=== PATIENT | male | born 1995 | race Caucasian/White ===

== ENCOUNTER 2022-02-24 16:20 | Emergency (ER) | payer BC ==
[~2022-02-24] VITALS: Ht 200.7 cm; Wt 86.3 kg
[2022-02-24 16:26] VITALS: BP 148/74
--- NOTE | 2022-02-24 16:38 | PHYS DOC ---
Past Medical History Additional Past Medical Histor: WPW Past Surgical History: Other Additional Past Surgical Histo: cardiac ablation, hernia repair Smoking Status: Never Smoker Alcohol Use: Occasionally General Adult EDM: Chief Complaint: OTHER COMPLAINTS HPI: HPI: Patient is a 26 year old male with no significant medical history who presents the ED today to be evaluated after using "dubs". Patient states he feels high. He states he freaked out and his family called 911. Review of Systems: Review of Systems: Constitutional: Denies fever or chills. [] Eyes: Denies change in visual acuity. [] HENT: Denies nasal congestion or sore throat. [] Respiratory: Denies cough or shortness of breath. [] Cardiovascular: Denies chest pain or edema. [] GI: Denies abdominal pain, nausea, vomiting, bloody stools or diarrhea. [] : Denies dysuria. [] Musculoskeletal: Denies back pain or joint pain. [] Integument: Denies rash. [] Neurologic: Denies headache, focal weakness or sensory changes. [] Psychiatric: reports using "dubs" Heart Score: C/O Chest Pain: N/A Risk Factors: Risk Factors: DM, Current or recent (<one month) smoker, HTN, HLP, family history of CAD, obesity. Risk Scores: Score 0 - 3: 2.5% MACE over next 6 weeks - Discharge Home Score 4 - 6: 20.3% MACE over next 6 weeks - Admit for Clinical Observation Score 7 - 10: 72.7% MACE over next 6 weeks - Early Invasive Strategies Allergies: Allergies: Allergies Coded Allergies Type Severity Reaction Last Updated Verified No Known Drug Allergies 02/24/22 No Physical Exam: PE: Constitutional: Well developed, well nourished, no acute distress, non-toxic appearance. [] HENT: Normocephalic, atraumatic, bilateral external ears normal, oropharynx moist, no oral exudates, nose normal. [] Eyes: PERRLA, EOMI, conjunctiva normal, no discharge. [] Neck: Normal range of motion, no tenderness, supple, no stridor. [] Cardiovascular:Heart rate regular rhythm, no murmur [] Lungs & Thorax: Bilateral breath sounds clear to auscultation [] Abdomen: Bowel sounds normal, soft, no tenderness, no masses, no pulsatile masses. [] Skin: Warm, dry, no erythema, no rash. [] Back: No tenderness, no CVA tenderness. [] Extremities: No tenderness, no cyanosis, no clubbing, ROM intact, no edema. [] Neurologic: Alert and oriented X 3, normal motor function, normal sensory function, no focal deficits noted. [] Psychologic: appears anxious Current Patient Data: Vital Signs: Vital Signs Date Time Temp Pulse Resp B/P (MAP) Pulse Ox O2 Delivery O2 Flow Rate FiO2 02/24/22 16:26 98.1 87 16 148/74 (98) 99 Room Air 98.1 EKG: EKG: [] Radiology/Procedures: Radiology/Procedures: [] Course & Med Decision Making: Course & Med Decision Making Pertinent Labs and Imaging studies reviewed. (See chart for details) This a 26-year-old male patient presented to the ED today to be evaluated after using "dabs" he states he feels anxious. Patient's vitals are stable. We discussed about going to rehab. He refused. Brother took patient home. Matias Disclaimer: Matias Disclaimer: This electronic medical record was generated, in whole or in part, using a voice recognition dictation system. Departure Departure Impression: Primary Impression: Marijuana use Disposition: 01 HOME / SELF CARE / HOMELESS Condition: STABLE Patient Instructions: Marijuana Abuse-Brief Additional Instructions: Please follow-up with [facility] for further concerns/help with drug use SANDI BEARD APRN February 24, 2022 16:38
== END 2022-02-24 16:42 | disposition home or self-care (01) ==
LOC: ER 16:20
DX: F12.90 Cannabis use, unspecified, uncomplicated (principal)
CPT/HCPCS: 99281; 99283